=== PATIENT | female | born 1955 | race Caucasian/White ===

== ENCOUNTER 2022-01-07 14:25 | Emergency (ER) | payer MEDICARE, OTHER ==
[~2022-01-07] VITALS: Ht 154 cm; Wt 65.0 kg
--- NOTE | 2022-01-07 14:47 | ED General ---
General Stated Complaint: COVID+; SYNCOPAL EPISODE History of Present Illness Date Seen by Provider: Jan 07, 2022 Time Seen by Provider: 14:47 Initial Comments 66-year-old female presents following a brief syncopal episode. Patient reports that she is COVID-positive. That when she stands up she gets dizzy and her feel like her blood pressure drops. She tested positive for COVID 4 days ago. She reports she been having the symptoms for about 7 days. She denies any fever or chills. She does complain of some mild dyspnea with exertion. Patient does report a history of smoking. She has had vaccination x1 dose. Allergies and Home Medications Allergies Coded Allergies: Penicillins (Verified Allergy, Unknown, 01/07/22) Patient Home Medication List Home Medication List Reviewed: Yes Review of Systems Review of Systems Constitutional: No chills; dizziness; No fever; malaise Respiratory: cough, dyspnea on exertion, short of breath Cardiovascular: No chest pain, No palpitations; syncope Gastrointestinal: No nausea, No vomiting Genitourinary: no symptoms reported Musculoskeletal: no symptoms reported Skin: no symptoms reported Psychiatric/Neurological: See HPI Physical Exam Vital Signs Vital Signs - First Documented 01/07/22 14:49 Temp 36.5 Pulse 100 Resp 14 B/P (MAP) 100/67 (78) Pulse Ox 96 O2 Delivery Room Air Capillary Refill : Height, Weight, BMI Height: '" Weight: lbs. oz. kg; BMI Method: General Appearance: No Apparent Distress, WD/WN Neck: Normal Inspection, Non Tender Respiratory: Lungs Clear Cardiovascular: Regular Rate, Rhythm, Tachycardia Gastrointestinal: Non Tender, Soft Back: Normal Inspection Extremity: Normal Capillary Refill, Normal Inspection, Normal Range of Motion Neurologic/Psychiatric: Alert, Oriented x3, No Motor/Sensory Deficits, Normal Mood/Affect, frame expander II-XII Norm as Tested Skin: Normal Color, Warm/Dry Progress/Results/Core Measures Suspected Sepsis SIRS Temperature: Pulse: Respiratory Rate: Laboratory Tests 01/07/22 14:30: White Blood Count 5.9 Blood Pressure / Mean: Laboratory Tests 01/07/22 14:30: Creatinine 1.24, Platelet Count 207, Total Bilirubin 0.4 Results/Orders Lab Results Laboratory Tests Test 01/07/22 14:30 Range/Units White Blood Count 5.9 4.3-11.0 10^3/uL Red Blood Count 5.33 H 3.80-5.11 10^6/uL Hemoglobin 15.9 11.5-16.0 g/dL Hematocrit 45 35-52 % Mean Corpuscular Volume 85 80-99 fL Mean Corpuscular Hemoglobin 30 25-34 pg Mean Corpuscular Hemoglobin Concent 35 32-36 g/dL Red Cell Distribution Width 12.9 10.0-14.5 % Platelet Count 207 130-400 10^3/uL Mean Platelet Volume 8.3 L 9.0-12.2 fL Immature Granulocyte % (Auto) 0 % Neutrophils (%) (Auto) 57 42-75 % Lymphocytes (%) (Auto) 32 12-44 % Monocytes (%) (Auto) 9 0-12 % Eosinophils (%) (Auto) 1 0-10 % Basophils (%) (Auto) 1 0-10 % Neutrophils # (Auto) 3.4 1.8-7.8 X 10^3 Lymphocytes # (Auto) 1.9 1.0-4.0 X 10^3 Monocytes # (Auto) 0.6 0.0-1.0 X 10^3 Eosinophils # (Auto) 0.0 0.0-0.3 10^3/uL Basophils # (Auto) 0.0 0.0-0.1 10^3/uL Immature Granulocyte # (Auto) 0.0 0.0-0.1 10^3/uL Sodium Level 141 135-145 MMOL/L Potassium Level 3.2 L 3.6-5.0 MMOL/L Chloride Level 101 98-107 MMOL/L Carbon Dioxide Level 26 21-32 MMOL/L Anion Gap 14 5-14 MMOL/L Blood Urea Nitrogen 22 H 7-18 MG/DL Creatinine 1.24 0.60-1.30 MG/DL Estimat Glomerular Filtration Rate 48 BUN/Creatinine Ratio 18 Glucose Level 95 70-105 MG/DL Calcium Level 9.0 8.5-10.1 MG/DL Corrected Calcium 8.9 8.5-10.1 MG/DL Total Bilirubin 0.4 0.1-1.0 MG/DL Aspartate Amino Transf (AST/SGOT) 18 5-34 U/L Alanine Aminotransferase (ALT/SGPT) 13 0-55 U/L Alkaline Phosphatase 108 40-136 U/L Total Protein 7.3 6.4-8.2 GM/DL Albumin 4.1 3.2-4.5 GM/DL My Orders Orders - JOSE MELENDEZ DO Cbc With Automated Diff (01/07/22 14:50) Comprehensive Metabolic Panel (01/07/22 14:50) Ua Culture If Indicated (01/07/22 14:50) Chest 1 View Ap/Pa Only (01/07/22 14:50) Lactated Ringers (Lr 1000 Ml Iv Solution (01/07/22 14:50) Vital Signs/I&O 01/07/22 14:49 Temp 36.5 Pulse 100 Resp 14 B/P (MAP) 100/67 (78) Pulse Ox 96 O2 Delivery Room Air Capillary Refill : Progress Note : Progress Note Patient's oxygen remained stable throughout her stay. Patient felt better following IV fluids. Patient was likely just mild dehydrated with her COVID diagnosis. Did recommend she continue to monitor her oxygen. Patient's x-ray shows some mild pneumonitis. Patient was stable discharged Diagnostic Imaging Diagonstic Imaging: Xray Plain Films/CT/US/NM/MRI: chest Comments Date of Exam:01/07/22 CHEST 1 VIEW AP/PA ONLY INDICATION: Cough COMPARISON: None Single AP view of chest is obtained. There is elevation of the right hemidiaphragm with mild patchy density in the right perihilar region. Heart size and pulmonary vascularity within normal limits. There is no pneumothorax or consolidation. No pleural fluid is seen. IMPRESSION: Elevation of the right hemidiaphragm of uncertain chronicity with mild patchy pneumonitis in right perihilar region. Reviewed: Reviewed by Me, Reviewed/Discussed Departure Impression Primary Impression: COVID-19 Additional Impression: Mild dehydration Disposition: 01 HOME, SELF-CARE Condition: Stable Departure-Patient Inst. Referrals: NO,LOCAL PHYSICIAN (PCP/Family) Primary Care Physician Patient Instructions: COVID-19 (DC) Add. Discharge Instructions: Please return to the ER if you develop worsening shortness of breath and please monitor your oxygen JOSE MELENDEZ DO Jan 07, 2022 14:47
[2022-01-07] MEDS ORDERED: LACTATED RINGERS 1,000 ML IV STA (14:50)
[2022-01-07 15:04] LABS: HEMATOCRIT 45 % (35-52); HEMOGLOBIN 15.9 g/dL (11.5-16.0); MEAN CORPUSCULAR HEMOGLOBIN 30 pg (25-34); MEAN CORPUSCULAR HGB CONC 35 g/dL (32-36); MEAN CORPUSCULAR VOLUME 85 fL (80-99); WHITE BLOOD COUNT 5.9 10^3/uL (4.3-11.0)
[2022-01-07 15:05] LABS: BASOPHILS % (AUTO) 1 % (0-10); EOSINOPHILS % (AUTO) 1 % (0-10); LYMPHOCYTES # (AUTO) 1.9 X 10^3 (1.0-4.0); LYMPHOCYTES % (AUTO) 32 % (12-44); MEAN PLATELET VOLUME 8.3 fL (9.0-12.2); MONOCYTES # (AUTO) 0.6 X 10^3 (0.0-1.0); MONOCYTES % (AUTO) 9 % (0-12); NEUTROPHILS # (AUTO) 3.4 X 10^3 (1.8-7.8); NEUTROPHILS % (AUTO) 57 % (42-75); PLATELET COUNT 207 10^3/uL (130-400)
--- NOTE | 2022-01-07 15:10 | Diagnostic Imaging Report ---
INDICATION: Cough COMPARISON: None Single AP view of chest is obtained. There is elevation of the right hemidiaphragm with mild patchy density in the right perihilar region. Heart size and pulmonary vascularity within normal limits. There is no pneumothorax or consolidation. No pleural fluid is seen. IMPRESSION: Elevation of the right hemidiaphragm of uncertain chronicity with mild patchy pneumonitis in right perihilar region. Dictated by: Dictated on workstation # [id number]
[2022-01-07 15:20] LABS: POTASSIUM 3.2 MMOL/L (3.6-5.0)
[2022-01-07 15:21] LABS: ALBUMIN 4.1 GM/DL (3.2-4.5); BILIRUBIN,TOTAL 0.4 MG/DL (0.1-1.0); CREATININE SERUM 1.24 MG/DL (0.60-1.30); TOTAL PROTEIN 7.3 GM/DL (6.4-8.2)
[2022-01-07 15:57] VITALS: BP 123/68
== END 2022-01-07 15:59 | disposition home or self-care (01) ==
LOC: ER FS 14:28
DX: U07.1 COVID-19 (principal); E86.0 Dehydration; Z87.891 Personal history of nicotine dependence; Z28.311 Partially vaccinated for COVID-19
CPT/HCPCS: 36415; 71045; 80053; 85025